=== PATIENT | female | born 1975 | race Caucasian/White ===

== ENCOUNTER 2017-05-03 07:21 | Inpatient (IN) | payer OTHER ==
[2017-04-15 09:51] VITALS: BMI 43.0
--- NOTE | 2017-04-15 10:21 | PAT Medication Instructions ---
Service Date Apr 15, 2017. Current Home Medication List Fluoxetine (Prozac), 40 MG PO QAM Hydrochlorothiazide (Hydrochlorothiazide), 1 TAB PO QAM Levothyroxine Sodium (Levothyroxine Sodium), 1 TAB PO QAM [ventolin inhaler], 2 PUFFS INH DIRECTED PRN for Shortness of Breath Medication Instructions For Your Scheduled Surgery - Hold the following medications the morning of surgery: Hydrochlorothiazide (Hydrochlorothiazide), 1 TAB PO QAM - Take the following medications the morning of surgery with a sip of water OTHERWISE NOTHING TO EAT OR DRINK AFTER MIDNIGHT: [ventolin inhaler], 2 PUFFS INH DIRECTED PRN for Shortness of Breath (use if needed; BRING TO HOSPITAL) Fluoxetine (Prozac), 40 MG PO QAM Levothyroxine Sodium (Levothyroxine Sodium), 1 TAB PO QAM If you have any questions please call us at [phone] or [phone] or [phone]
[2017-04-15 10:49] LABS: BASO % 0.3 %; BASO ABS # 0.02 K/uL (0-0.2); COMPLETE YES; EOS % 1.3 %; HEMATOCRIT 40.4 % (37-47); IG% 0.2 %; LYMPH % 31.8 %; LYMPH ABS # 2.01 K/uL (1.2-3.4); MEAN CELL VOLUME 91.6 fL (80-100); MEAN CORPUSCULAR HEMOGLOBIN 30.8 pg (25-34); MEAN CORPUSCULAR HGB CONC 33.7 g/dl (32-36); MEAN PLATELET VOLUME 9.1 fL (7.4-10.4); MONO % 9.5 %; NEUT % 56.9 %; PLATELET COUNT 285 K/uL (130-400); RED BLOOD COUNT 4.41 M/uL (4.2-5.4); WHITE BLOOD COUNT 6.33 K/uL (4.8-10.8)
--- NOTE | 2017-04-15 10:50 | DIAGNOSTIC IMAGING REPORT ---
CHEST PREADMISSION(PA/LAT) HISTORY: Preop. COMPARISON: None. FINDINGS: The lungs are clear. Cardiac silhouette is normal in size. No pleural effusions. No pneumothorax. IMPRESSION: No acute process. Electronically signed by: Vlad Arora M.D. 04/15/2017 10:49 AM Dictated Date/Time: 04/15/2017 10:46 AM
[2017-04-15 10:53] LABS: MANUAL MICROSCOPIC REQUIRED? NO; REVIEW REQ? NO; URINE APPEARANCE CLEAR (CLEAR); URINE BILIRUBIN NEG (NEG); URINE COLOR YELLOW; URINE EPITHELIAL CELL AUTO >30 /lpf (0-5); URINE NITRITE NEG (NEG); URINE SPECIFIC GRAVITY 1.014 (1.000-1.030); UROBILINOGEN NEG (NEG)
[2017-04-15 13:14] LABS: BUN/CREATININE RATIO 13.1 (10-20); CALCIUM 9.2 mg/dl (8.5-10.1); CREATININE 0.84 mg/dl (0.60-1.20); POTASSIUM 3.9 mmol/L (3.5-5.1)
[~2017-05-03] VITALS: Ht 177.8 cm; Wt 135.2 kg
[2017-05-03] VITALS (10 sets, daily range): BP systolic 101–127; BP diastolic 57–73; PULSE 59–88; TEMP 36.2–36.6; O2SAT 92–97; Ht 177.8 cm; Wt 135.2 kg
[~2017-05-03 07:21] MED LIST: CEFAZOLIN 3000 MG/65 ML D5W IV SCH; CeleBREX 200 MG CAP PO SCH; DEXAMETHASONE SOD INJ 4 MG/ML VIAL ONE; FENTANYL CITRATE INJ 50 MCG/1 ML 2 ML VIAL ONE; FLUO40CA8 PO; HYDR12.55 PO; HYDROmorphone INJ 2 MG/ML SYR/VIAL ONE; KETAMINE HCL INJ 50 MG/ML 10 ML VIAL ONE; LACTATED RINGER'S 1000ML 1,000 ML IV SCH; LEVO112T4 PO; LIDOCAINE HCL 2% 2 ML VIAL (20MG/ML) ONE; MIDAZOLAM HCL 1 MG/ML 2ML VIAL ONE; ONDANSETRON INJ 2 MG/ML 2 ML VIAL ONE; PREGABALIN 75 MG CAP PO SCH; PROPOFOL IV EMULSION 10 MG/ML 20 ML VIAL IV ONE; ROCURONIUM BROMIDE 10 MG/ML 5 ML VIAL ONE; ventolin inhaler INH
[2017-05-03] MEDS ORDERED: ONDANSETRON INJ 2 MG/ML 2 ML VIAL IV PRN ×2 (09:15→11:45)
[2017-05-03] MEDS ORDERED: PROMETHAZINE HCL INJ 12.5 MG in SODIUM CHLORIDE 0.9% 50ML 50 ML IV PRN ×2 (09:15→11:45)
[2017-05-03] MEDS ORDERED: EpHEDrine SULFATE INJ 50 MG/ML AMP IV PRN (09:15)
[2017-05-03] MEDS ORDERED: ATROPINE SULFATE 0.1 MG/ML 5ML SYR IV PRN (09:15)
[2017-05-03] MEDS ORDERED: THROMBIN FOR SOLN 20000 UNIT KIT ONE (09:54)
[2017-05-03] MEDS ORDERED: BUPIVACAINE/EPINEPHRINE 0.5% MPF 1:200,000 10 ML VIAL ONE (09:55)
[2017-05-03] MEDS ORDERED: BACITRACIN 50000 UNIT VIAL ONE (09:55)
[2017-05-03] MEDS ORDERED: HEPARIN SOD (PORCINE) 1000 UNIT/ML 10 ML VIAL ONE (09:55)
[2017-05-03] MEDS ORDERED: THROMBIN 5000 UNITS KIT ONE (09:55)
--- NOTE | 2017-05-03 10:08 | History & Physical Bridge Note ---
H&P Re-Evaluation Bridge Note: I have examined the patient, reviewed the History & Physical and in the interval since the performance of the History & Physical I have noted the following changes of clinical significance: No changes noted
[2017-05-03] MEDS ORDERED: FLOSEAL HEMOSTATIC MATRIX 10ML TOP ONE (11:29)
[2017-05-03] MEDS ORDERED: SODIUM CHLORIDE 0.9% 1000ML 1,000 ML IV SCH (11:44)
[2017-05-03] MEDS ORDERED: NALOXONE HCL 0.4 MG/1 ML VIAL/CARP IV PRN ×2 (11:45)
[2017-05-03] MEDS ORDERED: ACETAMINOPHEN 500 MG TAB PO PRN (11:45)
[2017-05-03] MEDS ORDERED: LORAZEPAM INJ 0.5 MG in SYRINGE 0.75 ML IV PRN (11:45)
[2017-05-03] MEDS ORDERED: SOD PHOSPHATE/SOD BIPHOSPHATE ENEMA 132 ML BTL PR PRN (11:45)
[2017-05-03] MEDS ORDERED: FAMOTIDINE 20 MG TAB PO PRN (11:45)
[2017-05-03] MEDS ORDERED: ALUMINUM/MAGNESIUM SUSP 30 ML UDC PO PRN (11:45)
[2017-05-03] MEDS ORDERED: hydrOXYzine HCL 25 MG TAB PO PRN (11:45)
[2017-05-03] MEDS ORDERED: LORAZEPAM 0.5 MG TAB PO PRN (11:45)
[2017-05-03] MEDS ORDERED: ACETAMINOPHEN IV 100 ML IV PRN (11:45)
[2017-05-03] MEDS ORDERED: HYDROmorphone HCL 0.5MG/ML 50 ML CASSETTE IV PRN (11:45)
[2017-05-03] MEDS ORDERED: BISACODYL 10 MG SUPP PR PRN (11:45)
[2017-05-03] MEDS ORDERED: METOCLOPRAMIDE HCL INJ 5 MG/ML 2 ML VIAL IV PRN (11:45)
[2017-05-03] MEDS ORDERED: MAGNESIUM HYDROXIDE SUSP 30 ML UDC PO PRN (11:45)
--- NOTE | 2017-05-03 11:57 | DIAGNOSTIC IMAGING REPORT ---
LUMBAR SPINE 2 OR 3 VIEW HISTORY: 41 years Female L4-S1 DECOMPRESSION/FUSION/INTERBODY COMPARISON: None available TECHNIQUE: Frontal and lateral spot fluoroscopic images of the lumbar spine were obtained utilizing 8.7 seconds of fluoroscopy time. FINDINGS/IMPRESSION: There has been interval laminectomy with interbody carla and screw fixation at the L4-L5 and L5-S1 levels. Alignment is satisfactory. The above report was generated using voice recognition software. It may contain grammatical, syntax or spelling errors. Electronically signed by: Ulices Alves M.D. 05/03/2017 11:55 AM Dictated Date/Time: 05/03/2017 11:54 AM
--- NOTE | 2017-05-03 11:57 | [facility] Post Operative Brief Note ---
Immediate Operative Summary Operative Date May 03, 2017. Pre-Operative Diagnosis Lumbar disk degeneration with foraminal stenosis and facet arthrosis, greatest at L4-5, and L5-S1 Post-Operative Diagnosis Lumbar disk degeneration with foraminal stenosis and facet arthrosis, greatest at L4-5, and L5-S1 Procedure(s) Performed L5-S1 Decompression and L4-S1 Instrumented Fusion; Infuse Bone Morphogenetic Protein, Use of Arteriocyte Surgeon Dr Mehta Weatherization Administrator Surgeon(s) Alexis Hartman Estimated Blood Loss 140ml Findings dict Specimens None as per
[2017-05-03] MEDS ORDERED: GLYCOPYRROLATE INJ 0.2 MG/ML VIAL ONE (12:00)
[2017-05-03] MEDS ORDERED: HYDROmorphone HCL 0.5MG/ML 50 ML CASSETTE ONE (12:00)
[2017-05-03] MEDS: FENTANYL CITRATE INJ 50 MCG/1 ML 2 ML VIAL IV PRN ×4 (12:00→12:15)
[2017-05-03] MEDS ORDERED: NEOSTIGMINE METHYLSULFATE 1 MG/ML 10ML VIAL ONE (12:00)
--- NOTE | 2017-05-03 12:02 | [facility] Operative Report ---
Operative Report Operative Date May 03, 2017. Pre-Operative Diagnosis Lumbar disk degeneration with foraminal stenosis and facet arthrosis, greatest at L4-5, and L5-S1 Post-Operative Diagnosis Lumbar disk degeneration with foraminal stenosis and facet arthrosis, greatest at L4-5, and L5-S1 Procedure(s) Performed 1. L5 laminectomy 2. L4-S1 bilateral pedicle screw instrumentation withn K2M Screws 3. Posterolateral fusion L4-S1 bilateral 4. R iliac crest bone marrow aspiratoin Surgeon Dr Mehta Furnace Installer Helper Surgeon(s) Alexis Hartman Estimated Blood Loss 140ml Findings see below Specimens None as per MD Complication(s) None Description of Procedure After identification of the patient and the operative level they were brought to the OR where they underwent induction of general anesthesia. They were positioned prone on a Jc spine table with all bony prominence well-padded. Care was taken to avoid pressure on the periorbital area. The lumbosacral area was sterilely prepped and draped in the usual fashion. Antibiotics were administered, a time-out was performed, level was confirmed, and skin incision was with localized lateral fluoroscopy and a spinal needle. The skin was infiltrated with half percent Marcaine with epinephrine. I then made skin incision from the spinous process of L3-S1. The dorsal fascia was incised and posterior exposure was accomplished with dissection out to the tips of the transverse processes from L4-S1 bilaterally. I then packed the gutters with thrombin-soaked sponges and used fluoroscopy to confirm the operative levels with markers at the operative levels. After identification of the appropriate level I placed Gelpi retractors and proceeded to perform midline decompression. Laminectomies of L5 were performed in the midline with takedown of the intervening ligamentum flavum. I then used an osteotome to remove the medial facets at L5-S1. Facet hypertrophy and degenerative changes were noted at the operative levels. L4-5 did not have significant stenosis therefore I simply removed the inferior portion of L4 spinous process for graft and decorticated the facets that were degenerated with a andrea. I then completed decompression with Kerrison rongeurs and palpated the nerve roots were adequately decompressed at the operative levels from L5-S1 bilaterally. I palpated all nerve roots were decompressed adequately. I then obtained hemostasis of epidural bleeding with bipolar cautery and Surgiflo. I then proceeded to place pedicle screws bilaterally at L4-S1 with bony anatomy confirmed to be intact with the ball-tipped feeler. I confirmed screw length, trajectory, and position with fluoroscopy. The disc at L5-S1 was collapsed posteriorly and prevented cage placement. Bone graft consisted of morselized local bone from laminectomy bone as well as bone graft hybrid derivatives trader saturated with stem cell concentrate. I obtained stem cell concentrate using a stem cell concentration system after aspiration of bone marrow from the right iliac crest via a separate stab incisions with a Jamshidi needle. I then applied this to bone graft hybrid derivatives trader. I then lowered the Bill frame to restore lordosis. I applied rods and end caps bilaterally with final tightening of all caps. I irrigated with bacitracin solution. I then decorticated the transverse processes bilaterally at the operative levels from L4-S1 as well as facet joints with a high-speed bur. I then packed the lateral gutters and facets with the bone graft mixture consisting of: infuse BMP and a collagen sponge, tricalcium phosphate logs, stem cell concentrate, morcellized local bone, and bone graft hybrid derivatives trader. I then confirmed hemostasis and closed in a layered fashion over a KARINA drain. All sponge and needle counts were correct in the case. Please note my PA-C participated in all portions of the procedure and was critical for performance of the procedure by assisting in positioning, prepping, draping, suction, retraction, and wound closure. I attest to the content of the Intraoperative Record and any orders documented therein. Any exceptions are noted below.
[2017-05-03] MEDS: HYDROmorphone INJ 1 MG/ML SYR IV PRN ×4 (12:27→12:42)
--- NOTE | 2017-05-03 12:47 | Anesthesiology Progress Note ---
Anesthesia Post Op Note Date & Time May 03, 2017 at 12:47 Vital Signs Pain Intensity: 4 Vital Signs Past 12 Hours Date Time Temp Pulse Resp B/P (MAP) Pulse Ox O2 Delivery O2 Flow Rate FiO2 05/03/17 12:38 63 15 96 05/03/17 12:38 64 15 05/03/17 12:36 112/77 05/03/17 12:33 72 15 96 05/03/17 12:33 72 15 05/03/17 12:31 124/87 05/03/17 12:28 65 13 05/03/17 12:28 61 13 95 05/03/17 12:26 127/78 05/03/17 12:23 65 20 94 05/03/17 12:23 67 20 05/03/17 12:22 124/66 05/03/17 12:18 72 11 95 05/03/17 12:18 73 11 05/03/17 12:16 158/95 05/03/17 12:13 77 15 05/03/17 12:13 77 15 99 05/03/17 12:11 138/85 05/03/17 12:08 82 15 97 05/03/17 12:08 82 15 05/03/17 12:06 139/104 05/03/17 12:03 81 18 99 05/03/17 12:03 81 18 05/03/17 12:01 160/96 05/03/17 11:58 87 27 05/03/17 11:58 87 27 99 05/03/17 11:56 152/102 05/03/17 11:54 164/101 05/03/17 11:53 37. 90 16 164/101 95 Mask 10 05/03/17 08:02 36.5 73 20 127/73 95 Room Air Notes Mental Status: alert / awake / arousable, participated in evaluation Pt Amnestic to Procedure: Yes Nausea / Vomiting: adequately controlled Pain: adequately controlled Airway Patency, RR, SpO2: stable & adequate BP & HR: stable & adequate Hydration State: stable & adequate Anesthetic Complications: no major complications apparent
[2017-05-03] MEDS ORDERED: DiphenhydrAMINE HCL 50 MG/ML VIAL ONE (13:10)
[2017-05-03] MEDS ORDERED: DiphenhydrAMINE HCL 50 MG/ML VIAL IV PRN (13:15)
[2017-05-03] MEDS: SODIUM CHLORIDE 0.9% 1000ML 1,000 ML IV SCH (14:05)
[2017-05-03] MEDS: DEXAMETHASONE INJ 6 MG in SYRINGE 0 ML IV SCH (15:36)
[2017-05-03] MEDS: CEFAZOLIN IV 2,000 MG in DEXTROSE 5% 50ML 50 ML IV SCH (17:51)
[2017-05-03] MEDS: DOCUSATE SODIUM/SENNA 50/8.6MG TAB PO SCH (20:38)
[2017-05-04] VITALS (7 sets, daily range): BP systolic 100–134; BP diastolic 61–80; PULSE 60–80; TEMP 36.6–36.8; O2SAT 91–95
[2017-05-04] MEDS: DEXAMETHASONE INJ 6 MG in SYRINGE 0 ML IV SCH ×2 (00:23→07:10)
[2017-05-04] MEDS: SODIUM CHLORIDE 0.9% 1000ML 1,000 ML IV SCH (01:39)
[2017-05-04] MEDS: CEFAZOLIN IV 2,000 MG in DEXTROSE 5% 50ML 50 ML IV SCH (01:39)
[2017-05-04] MEDS: LEVOTHYROXINE 112 MCG TAB PO SCH (05:36)
[2017-05-04] MEDS ORDERED: HYDROmorphone INJ 1 MG/ML SYR IV PRN (06:00)
[2017-05-04] MEDS ORDERED: DC PCA SCH (06:00)
[2017-05-04] MEDS ORDERED: NURSING DECISION MEDICATION ORDER SCH (06:00)
[2017-05-04] MEDS ORDERED: HYDROmorphone INJ 0.5 MG/0.5 ML SYR IV PRN (06:00)
[2017-05-04 06:08] LABS: COMPLETE YES; HEMATOCRIT 38.8 % (37-47); IG% 0.2 %; LYMPH % 7.8 %; LYMPH ABS # 1.46 K/uL (1.2-3.4); MEAN CELL VOLUME 92.2 fL (80-100); MEAN CORPUSCULAR HEMOGLOBIN 29.7 pg (25-34); MEAN CORPUSCULAR HGB CONC 32.2 g/dl (32-36); MEAN PLATELET VOLUME 9.7 fL (7.4-10.4); MONO % 6.9 %; NEUT % 85.1 %; PLATELET COUNT 263 K/uL (130-400); RED BLOOD COUNT 4.21 M/uL (4.2-5.4); WHITE BLOOD COUNT 18.76 K/uL (4.8-10.8)
[2017-05-04 06:41] LABS: BUN/CREATININE RATIO 16.6 (10-20); CALCIUM 8.7 mg/dl (8.5-10.1); CREATININE 0.87 mg/dl (0.60-1.20); POTASSIUM 4.6 mmol/L (3.5-5.1)
[2017-05-04] MEDS: FLUOXETINE HCL 20 MG CAP PO SCH (07:10)
[2017-05-04] MEDS: OXYCODONE HCL IR 5 MG TAB (IMMEDIATE RELEASE) PO PRN ×3 (07:11→18:15)
--- NOTE | 2017-05-04 07:58 | Anesthesiology Progress Note ---
Anesthesia Post Op Note Date & Time May 04, 2017 at 07:58 Vital Signs Pain Intensity: 6.0 Vital Signs Past 12 Hours Date Time Temp Pulse Resp B/P (MAP) Pulse Ox O2 Delivery O2 Flow Rate FiO2 05/04/17 07:47 36.7 70 19 134/64 (87) 91 Room Air 05/04/17 07:15 Nasal Cannula 2.0 05/04/17 04:26 36.6 60 17 110/67 (81) 95 Nasal Cannula 2.0 05/03/17 23:00 36.6 76 16 103/67 (79) 92 Room Air 05/03/17 20:11 36.4 62 16 102/61 (75) 95 Nasal Cannula Notes Mental Status: alert / awake / arousable, participated in evaluation Pt Amnestic to Procedure: Yes Nausea / Vomiting: adequately controlled Pain: adequately controlled Airway Patency, RR, SpO2: stable & adequate BP & HR: stable & adequate Hydration State: stable & adequate Anesthetic Complications: no major complications apparent
--- NOTE | 2017-05-04 15:20 | Orthopedic Progress Note ---
Orthopedic Progress Note Date of Service May 04, 2017. Subjective Post OP Day: 1 Reports: feeling well, Denies: chest pain, SOB, nausea / vomiting, light headedness Additional Notes: Pt lying on her left side when entering room. States she feels she overdid it today between PT and sitting up in the chair. Having some pain in the operative area but getting under control with meds and rest. Very happy that she no longer has pain down her lower extremity and no more numbness in her foot. Objective calves soft nontender, N/V intact, dressing C/D/I, A&O x3, hemovac drainage ( 120ml) Date Time Temp Pulse Resp B/P (MAP) Pulse Ox O2 Delivery O2 Flow Rate FiO2 05/04/17 12:10 36.8 80 19 122/74 (90) 94 Room Air 05/04/17 10:52 91 Room Air 05/04/17 10:25 75 92 05/04/17 07:47 36.7 70 19 134/64 (87) 91 Room Air 05/04/17 07:15 Nasal Cannula 2.0 05/04/17 04:26 36.6 60 17 110/67 (81) 95 Nasal Cannula 2.0 05/03/17 23:00 36.6 76 16 103/67 (79) 92 Room Air 05/03/17 20:11 36.4 62 16 102/61 (75) 95 Nasal Cannula 05/03/17 19:35 95 Nasal Cannula 2.0 05/03/17 16:43 60 16 101/67 (78) 93 05/03/17 15:27 36.2 88 16 108/57 (74) 96 Nasal Cannula 4.0 Laboratory Results 24 Hours: Test 05/04/17 05:48 White Blood Count 18.76 K/uL Red Blood Count 4.21 M/uL Hemoglobin 12.5 g/dL Hematocrit 38.8 % Mean Corpuscular Volume 92.2 fL Mean Corpuscular Hemoglobin 29.7 pg Mean Corpuscular Hemoglobin Concent 32.2 g/dl Platelet Count 263 K/uL Mean Platelet Volume 9.7 fL Neutrophils (%) (Auto) 85.1 % Lymphocytes (%) (Auto) 7.8 % Monocytes (%) (Auto) 6.9 % Eosinophils (%) (Auto) 0.0 % Basophils (%) (Auto) 0.0 % Neutrophils # (Auto) 15.97 K/uL Lymphocytes # (Auto) 1.46 K/uL Monocytes # (Auto) 1.29 K/uL Eosinophils # (Auto) 0.00 K/uL Basophils # (Auto) 0.00 K/uL Assessment & Plan Assessment: POD 1 s/p L5-S1 Decompression and L4-S1 Instrumented Fusion; Infuse Bone Morphogenetic Protein, Use of Arteriocyte Plan: PT/OT Planning for dc The patient was seen and examined by Dr. Gabriel while the patient was indicating in the hallway with physical therapy present. A she was on a walker and was invading without significant discomfort. Patient positive for flatus. No bowel movement since prior to surgery. Mild to moderate strikethrough on her lumbar dressing was noted. KARINA drain intact. Patient will be reassessed in the morning for possible discharge. KARINA drain dressing to be changed. Eric Gabriel D.O. Inhouse Planning Pain Management: Dilaudid, PO Tylenol, Oxy IR DVT Prophylaxis: TEDs, SCDs Discharge Planning Discharge Planning: home
[2017-05-04] MEDS ORDERED: KETOROLAC TROMETHAMINE 15 MG/ML VIAL IV. ONE (20:15)
[2017-05-04] MEDS ORDERED: NURSING VERBAL MED ORDER ONE (20:15)
[2017-05-04] MEDS ORDERED: KETOROLAC TROMETHAMINE 15 MG/ML VIAL IV. PRN (20:15)
[2017-05-04] MEDS: DOCUSATE SODIUM/SENNA 50/8.6MG TAB PO SCH (20:31)
[2017-05-05] MEDS: LEVOTHYROXINE 112 MCG TAB PO SCH (05:29)
[2017-05-05] MEDS: POLYETHYLENE (MIRALAX) 17 GM PACK PO SCH ×2 (05:29→12:00)
[2017-05-05 07:34] VITALS: BP 112/70; PULSE 69; TEMP 36.4; O2SAT 95
[2017-05-05] MEDS: FLUOXETINE HCL 20 MG CAP PO SCH (08:31)
[2017-05-05 10:11] VITALS: O2SAT 95
[2017-05-05] MEDS ORDERED: RXC5 PO (11:58)
--- NOTE | 2017-05-05 11:59 | Discharge Instructions ---
Discharge Instructions Date of Service May 05, 2017. Admission Reason for Admission: Spinal Stenosis Discharge Discharge Diagnosis / Problem: same Discharge Goals Goal(s): Decrease discomfort Activity Recommendations Activity Limitations: per Instructions/Follow-up section . Instructions / Follow-Up Instructions / Follow-Up ACTIVITY RECOMMENDATIONS: SELF CARE INSTRUCTIONS AFTER THORACIC/LUMBAR FUSIONS 1. You may walk to your tolerance. It is good exercise for your legs and back. Expect some back and intermittent leg aches and pains. 2. You may perform "counter-top" level activities (make a sandwich, latia with a project, etc.). 3. No bending or lifting of more than 10 pounds or back twisting of any nature (roll like a log when turning in bed). 4. You may ride in a car for 20-30 minutes at a time. No driving until after your first visit with your doctor. 5. Frequent changes of position and restricting sitting to 30 minutes at a time will help limit the amount of back spasms and stiffness you may experience. 6. You may discontinue the use of ambulatory aids (cane, crutches, etc.) once your strength and confidence allow. 7. You may lead principal technical architect the shower and let water strike your incision when you arrive home at least once daily. Do not take a tub bath, sit in a hot tub or go into a swimming pool until after your first recheck in the office. SPECIAL CARE INSTRUCTIONS: VERY IMPORTANT TO READ AND REVIEW A. Your surgical incision has been closed with a cosmetic suture under the skin that will dissolve in about 6 weeks. In 14 days, you can use a pair of clean scissors and cut the suture that is left outside of the skin at the ends of your incision. 1. The small skin tapes can be removed 7 days after surgery if they have not fallen off by that point. 2. You may keep the wound open to air as much as possible to promote healing after post-op day number 5 unless told otherwise by your doctor. 3. If you think the wound looks like it is becoming infected (redness or worsening drainage) and/or you are experiencing fever, chill or worsening back pain and muscle spasms, contact the office so that we may evaluate you as soon as possible. B. Complications are uncommon, but please contact us if you have any signs or symptoms of: 1. wound infection (fever higher than 102.5 degrees F, redness, separation of wound, drainage, or increasing pain from the incision) 2. blood clots in legs (pain, swelling, redness and warmth in legs) 3. urinary tract infection (fever higher than 102.5 degrees F, burning upon urination or increased frequency of urination) 4. nerve problems (inability to walk on your toes or heels, numbness, loss of bowel or bladder control) 5. any other symptoms that concern you C. Please call the office at if you have any concerns or questions about your operation or recovery. D. No smoking! Smoking drastically decreases the chance of a solid fusion. E. Do not take any anti-inflammatory medications (Indocin, Advil, Motrin, Aspirin, Naprosyn, etc.) as these may inhibit the chance of a solid fusion. Tylenol is okay to take for pain. MANAGING PAIN AFTER SPINAL SURGERY 1. Narcotic medication is intended for short-term use and will be provided for surgical pain. Surgical pain usually lasts for a period of 4-6 weeks. Narcotic medication includes Percocet, Vicodin, Darvocet, Tylenol #3 or Lortab. 2. Longer-term pain is more appropriately treated with non-narcotic medication such as Tylenol ES. 3. Muscle spasm is not appropriately treated with narcotics. Muscle relaxers such as Soma, Flexeril or Skelaxin can be used along with Tylenol ES. 4. Remember that we all live with some "aches and pains". This is not unusual or uncommon after an injury or as we get older. a. Back pain is expected and may include muscle spasms for 4 to 6 weeks after surgery. The pain should gradually improve. If the pain worsens for no apparent reason, please contact the office. b. Intermittent leg pain may also be experienced and should not be concerned about unless it worsens for no apparent reason. If so, please contact the office. 5. We will provide appropriate medication within the normal guidelines of their prescribed use. We will also be very cautious and aware of potential abuse and extended duration of patients' medication needs. a. Pain medications are for your comfort and to assist with sleep and rest so that the tissue can heal. They are not provided in order to return to normal activity and should not be used through the day. To do so or worsening pain at night can result from ongoing tissue damage and development of tolerance to the prescribed medicine. 6. Please allow 2-3 days to process refills. Prescriptions will not be mailed but must be picked up at the office. FOLLOW UP VISIT: Keep your scheduled follow-up appointment. Any questions, please call the office at . Current Hospital Diet Patient's current hospital diet: Regular Diet Discharge Diet Recommended Diet: Regular Diet Procedures Procedures Performed: 1. L5 laminectomy 2. L4-S1 bilateral pedicle screw instrumentation withn K2M Screws 3. Posterolateral fusion L4-S1 bilateral 4. R iliac crest bone marrow aspiratoin Pending Studies Studies pending at discharge: no Medical Emergencies . Who to Call and When: Medical Emergencies: If at any time you feel your situation is an emergency, please call 911 immediately. . Non-Emergent Contact Non-Emergency issues call your: Surgeon . "Provider Documentation" section prepared by Arnaud Mehta. . VTE Core Measure Inpt VTE Proph given/why not?: SCD's [place] Drug Monitoring Program Search Results: patient reviewed within database, no issues identified ( checked by jaqueline)
--- NOTE | 2017-05-05 12:36 | Discharge Summary ---
Orthopedic Discharge Summary Admission Date/Reason May 03, 2017 at 09:30 Spinal Stenosis. Discharge Date/Disposition May 05, 2017 Home with services Diagnosis Principal Diagnosis: same Procedure(s) Performed Lumbar fusion Medication Reconciliation New Medications: Oxycodone HCl (Oxycodone HCl) 5 Mg Tab 5-10 MG PO Q4H PRN for Moderate - severe pain, #90 TAB Continued Medications: Fluoxetine (Prozac) 40 Mg Cap 40 MG PO QAM, CAP Hydrochlorothiazide (Hydrochlorothiazide) 12.5 Mg Tab 1 TAB PO QAM for 30 Days, #30 TAB 5 Refills Levothyroxine Sodium (Levothyroxine Sodium) 112 Mcg Tab 1 TAB PO QAM for 30 Days, #30 TAB 5 Refills [ventolin inhaler] () 2 PUFFS INH DIRECTED PRN for Shortness of Breath Admission Physical Exam As per Admitting History & Physical. Hospital Course The patient was admitted for elective lumbar surgery and underwent the procedure without complications. They were transferred to the floor where they were hemodynamically stable. Pain was controlled with oral pain medication. They were seen by PT/OT and demonstrated safe mobilization. Drain output decreased and they had return of bowel function. They were discharged in stable condition Discharge Instructions Please refer to the electronic Patient Visit Report (Discharge Instructions) for additional information.
[2017-05-05 12:52] VITALS: BP 112/70; PULSE 69; TEMP 36.4; O2SAT 95
[2017-05-05] MEDS: OXYCODONE HCL IR 5 MG TAB (IMMEDIATE RELEASE) PO PRN (14:05)
[2018-05-03] MEDS ORDERED: CEFAZOLIN 3000 MG/65 ML D5W IV SCH (06:00)
== END 2017-05-05 14:45 | disposition home or self-care (01) | DRG 460 ==
LOC: C.ACU 07:21 → C.3E 09:30 → ENRESERV 13:02
PROVIDERS: ADMIT Orthopaedic Surgery Orthopaedic Surgery of the Spine; ATTEND Orthopaedic Surgery Orthopaedic Surgery of the Spine
PROC: 3E0V0GB Introduction of Recombinant Bone Morphogenetic Protein into Bones, Open Approach (ICD-10-PCS; principal; 2017-05-03 09:30)
PROC: 0SG30AJ Fusion of Lumbosacral Joint with Interbody Fusion Device, Posterior Approach, Anterior Column, Open Approach (ICD-10-PCS; principal; 2017-05-03 09:30)
PROC: 0QB20ZZ Excision of Right Pelvic Bone, Open Approach (ICD-10-PCS; principal; 2017-05-03 09:30)
DX: M48.07 Spinal stenosis, lumbosacral region (principal); Z68.41 Body mass index [BMI] 40.0-44.9, adult; M48.06 Spinal stenosis, lumbar region; E66.9 Obesity, unspecified; F32.9 Major depressive disorder, single episode, unspecified; F17.210 Nicotine dependence, cigarettes, uncomplicated; Z90.49 Acquired absence of other specified parts of digestive tract; Z98.51 Tubal ligation status

== ENCOUNTER 2023-01-31 20:09 | Observation (INO) ==
[2023-01-31 22:26] LABS: Basophils # (auto) 0.05 K/uL (0-0.2); Basophils % (auto) 0.5 %; Hematocrit (blood only) 38.4 % (37.0-47.0); Hemoglobin 12.7 g/dl (12.0-16.0); Immature Granulocytes # (auto) 0.02 K/uL (0.01-0.20); Immature Granulocytes % (auto) 0.2 %; Lymphocytes # (auto) 3.34 K/uL (1.2-3.4); Mean Corpuscular Hemoglobin 29.4 pg (25.0-34.0); Mean Corpuscular Hgb Conc 33.1 g/dL (32.0-36.0); Mean Corpuscular Volume 88.9 fL (80.0-100.0); Mean Platelet Volume 9.2 fL (9.4-12.4); Monocytes # (auto) 0.97 K/uL (0.11-0.59); Monocytes % (auto) 9.9 %; Neutrophils # (auto) 5.34 K/uL (1.40-6.50); Neutrophils % (auto) 54.4 %; Platelet Count 295 K/uL (130-400); RDW Coefficient of Variation 12.3 % (11.5-14.5); Red Blood Count 4.32 M/uL (4.20-5.40); White Blood Count 9.82 K/ul (4.8-10.8)
[2023-01-31 22:42] LABS: BUN Creatinine Ratio 20.7 (10-20); Calcium 9.4 mg/dl (8.6-10.3); Creatinine Clr Calc Pharmacy 136.5 ml/min; Est GFR (African American) 100.2 ml/min; Est GFR (Non-African American) 86.4 ml/min
[2023-01-31] MEDS ORDERED: metroNIDAZOLE 500 MG/100 ML BAG IV STA (23:14)
--- NOTE | 2023-01-31 23:31 | Emergency Department Note ---
History of Present Illness General Chief complaint: Animal Bite Stated complaint: BIT BY CAT,HAND SWELLING Time Seen by Provider: 01/31/23 23:04 History of Present Illness Maximum Pain Intensity: 5 This 47-year-old female presents to the ER complaining of hand finger pain and swelling after being bit by her cat yesterday. Patient complains of pain to the right hand second digit and left hand 2 fingers. They are red and swollen. She has difficulty bending and extending the finger. Patient denies fever, chills, numbness, tingling, diabetes. Tetanus is reported as current. Home Medications Medication Instructions Recorded Confirmed Type albuterol sulfate 90 mcg/actuation 2 puff inhalation QID PRN 08/30/18 08/30/18 History aerosol inhaler Shortness Of Breath Or Wheezing fluoxetine 40 mg capsule 40 mg PO QAM 08/30/18 08/30/18 History hydrochlorothiazide 12.5 mg capsule 12.5 mg PO QAM 08/30/18 08/30/18 History levothyroxine 112 mcg tablet 112 mcg PO QAM 08/30/18 08/30/18 History Allergies Allergy/AdvReac Type Severity Reaction Status Date / Time No Known Allergies Allergy Unknown Verified 08/30/18 04:24 Past Med/Surg History Social History Smoking Status: Never smoker Preferred Language: Telugu Feels Safe at Home: Yes Review of Systems A total of 10 systems reviewed and were otherwise negative Physical Exam Vital Signs Vital Signs - 24 hr 01/31/23 20:30 01/31/23 23:08 Temperature 36.9 C Temperature Source Temporal Artery Scan Pulse Rate 73 Pulse Rate [Left Finger] 69 Respiratory Rate 20 20 Blood Pressure 189/103 H Blood Pressure [Left Arm] 151/89 H Blood Pressure Mean 131 Blood Pressure Mean [Left Arm] 109 Pulse Oximetry 98 98 Oxygen Delivery Method Room Air Room Air Sepsis Recent Fever Within 48 Hours No Sepsis New/Unexplained Change in Mental Status N/A Sepsis Action Taken by Nursing No Action Required VITALS: Vitals are noted on the nurse's note and reviewed by myself. Vital signs stable. GENERAL: Pleasant, in no acute distress, nondiaphoretic, well-developed well- nourished. SKIN: Cat bites to both hands with 3 fingers that are infected, the rest of the skin was without rashes, erythema, edema, or bruising. There is no tenting of the skin. Capillary reflex less than 2 seconds. HEAD: Normocephalic atraumatic. EARS: External auditory canals clear, EYES: Pupils equal round and reactive to light and accommodation. Conjunctivae without injection, sclerae without icterus. Extraocular movements intact. NOSE: Patent, turbinates without inflammation or discharge. MOUTH: Mucous membranes moist. Pharynx without erythema or exudate. Uvula midline. Airway patent. Tongue does not deviate. NECK: Supple without nuchal rigidity. No lymphadenopathy. No thyromegaly. Cervical spine is nontender. No JVD. HEART: Regular rate and rhythm LUNGS: Clear to auscultation bilaterally without wheezes, rales or rhonchi. No retractions or accessory muscle use. ABDOMEN: Positive bowel sounds x 4. Normal tympanic percussion. Soft, nontender, without masses or organomegaly. Coleman sign negative. No guarding or rebound tenderness. No CVA tenderness MUSCULOSKELETAL: No muscle atrophy, erythema, or edema noted. Right hand second finger concerns for tendon infection, left hand second and fourth finger concerns for infection. Patient has difficulty extending these fingers. All of the fingers have full range of motion. NEURO: Patient was alert and oriented to person place and time. Normal sensation to light and sharp touch. No focal neurological deficits. Medical Decision Making Medical Records Attestation: I reviewed the patient's medical records. Home Medications Current Medication List: was personally reviewed by me Laboratory Data Attestation: I reviewed the patient's lab results. 01/31/23 22:11 01/31/23 22:11 Lab Results 01/31/23 01/31/23 Range/Units 22:11 22:11 WBC 9.82 (4.8-10.8) K/ul RBC 4.32 (4.20-5.40) M/uL Hgb 12.7 (12.0-16.0) g/dl Hct 38.4 (37.0-47.0) % MCV 88.9 (80.0-100.0) fL MCH 29.4 (25.0-34.0) pg MCHC 33.1 (32.0-36.0) g/dL RDW Std Deviation 40.0 (36.4-46.3) fL RDW Coeff of Dalton 12.3 (11.5-14.5) % Plt Count 295 (130-400) K/uL MPV 9.2 L (9.4-12.4) fL Immature Gran % (Auto) 0.2 % Neut % (Auto) 54.4 % Lymph % (Auto) 34.0 % [place] % (Auto) 9.9 % Eos % (Auto) 1.0 % Baso % (Auto) 0.5 % Neut # (Auto) 5.34 (1.40-6.50) K/uL Lymph # (Auto) 3.34 (1.2-3.4) K/uL [place] # (Auto) 0.97 H (0.11-0.59) K/uL Eos # (Auto) 0.10 (0-0.50) K/uL Baso # (Auto) 0.05 (0-0.2) K/uL Immature Gran # (Auto) 0.02 (0.01-0.20) K/uL Sodium 138 (136-145) mmol/L Potassium 4.0 (3.5-5.1) mmol/L Chloride 106 (98-107) mmol/L Carbon Dioxide 24 (21-32) mmol/L Anion Gap 8 (3-11) BUN 17 (6-23) mg/dl Creatinine 0.82 (0.6-1.2) mg/dl Est Cr Clr Drug Dosing 136.5 ml/min Est GFR ( Amer) 100.2 ml/min Est GFR (Non-Af Amer) 86.4 ml/min BUN/Creatinine Ratio 20.7 H (10-20) Glucose 97 (70-99(Fasting)) mg/dl Calcium 9.4 (8.6-10.3) mg/dl Imaging Data Attestation: I personally reviewed and interpreted this imaging study as follows: MDM Narrative Prior records reviewed and summarized as above. Triage Nursing notes reviewed. Additional history obtained from family. The patient's history was concerning for swelling and redness of the skin. Differential diagnosis: Etiologies such as cellulitis, abscess, MRSA infection, DVT, necrotizing fasciitis, dermatitis, drug eruption, as well as others were entertained.. Physical examination: The physical examination was consistent with infected cat bites ER treatment provided: Zosyn and Flagyl were ordered Patient given morphine for the pain. On reassessment the patient felt better. Diagnostics interpreted by me: The labs Independently Interpreted by myself revealed no worrisome leukocytosis, blood cultures pending Imaging studies: Bilateral hand x-rays no for fracture, dislocation or foreign body per my independent interpretation Consultation: A consultation was placed with the hospitalist. The case was discussed and diagnostics were reviewed. The patient was evaluated in the ER for further treatment. This appears to be infected cat bites to both hands. Patient was started on antibiotics. There is concern for tendon involvement. Medicine was consulted. Patient will be admitted for IV antibiotics. By the evaluation outlined above emergent etiologies such as abscess, necrotizing fasciitis, DVT, as well as others were deemed relatively unlikely. The pt informed about the findings as listed above. All questions were answered and pleased with the treatment. The chart was completed utilizing Glow Speech voice recognition software. Grammatical errors, random word insertions, pronoun errors, and incomplete sentences are an occassional consequence of this system due to software limitations, ambient noise, and hardware issues. Any formal questions or concerns about the content, text, or information contained within the body of this dictation should be directly addressed to the physician assistant at surgery for clarification. Impression & Plan Infected cat bite of finger, Cat bite Discharge Plan Visit Data Chief Complaint: Animal Bite Stated Complaint: BIT BY CAT,HAND SWELLING ED Provider: [facility] ED Midlevel Provider: Sloane Crain Discharge Problem: Infected cat bite of finger, Cat bite Patient Disposition: Admitted As Inpatient Condition: Good Forms Stand Alone Forms: [facility] [employer] Prescriptions Prescriptions: No Action fluoxetine 40 mg capsule 40 mg PO QAM hydrochlorothiazide 12.5 mg capsule 12.5 mg PO QAM albuterol sulfate [Ventolin HFA] 90 mcg/actuation HFA aerosol inhaler 2 puff Inhalation QID PRN (Reason: Shortness Of Breath Or Wheezing) levothyroxine 112 mcg tablet 112 mcg PO QAM Referrals Referrals: Robert Victoria MD [Primary Care Provider] - Infected cat bite of finger Qualifiers: Encounter type: initial encounter Qualified Code(s): S61.259A - Open bite of unspecified finger without damage to nail, initial encounter
[2023-01-31] MEDS: PIPERACILLIN/TAZOBACTAM 4.5 GM/120 ML BAG IV ONE (23:39)
[2023-02-01] MEDS ORDERED: MoRPHine SULFATE 4 MG/ML 1 ML CARP\\VIAL IV STA (00:04)
--- NOTE | 2023-02-01 00:27 | History & Physical Report ---
Date of Service February 01, 2023 Assessment & Plan (1) Infected cat bite of finger: Plan: 47-year-old female presenting with worsening edema, redness and pain at the site of multiple cat bites. Patient is afebrile, hemodynamically stable and nontoxic in appearance. Observation to medical Continue Zosyn -Monitor for progressive cellulitis Orthopedic surgery consultation appreciated Tylenol and ibuprofen as needed for pain Tetanus vaccine ordered Patient with history of hypertension, hypothyroidism and depression. She reports she is not currently taking any medications for these issues. She recently got her medical insurance reinstated and is in the process of trying to obtain these medications. I asked if she needed assistance at this time and she declined. Overall she feels she is doing very well History of Present Illness Chief Complaint: Cat bites Primary Care Provider: Robert Victoria MD Aliyah Jerome Is a 47-year-old female with history of hypothyroidism and hypertension presenting with multiple cat bites on her hands. Patient's cat got its paw caught. When patient tried to help free the cat's paw, the cat bit her multiple times on both of her hands. The event occurred yesterday 01/30/2023 around 20:30. She sustained multiple puncture wounds to her left and right hands. Since the event, she has noted increased swelling and pain in her bilateral hands specifically her second and fourth digit on her left and her second digit on her right hand. She has also noted worsening redness on the dorsum of the right second digit.She went to the jeweler today and had her rings cut off of her left finger secondary to swelling. Patient denies fevers, chills, nausea, vomiting. Denies chest pain, cough, shortness of breath. No additional complaints at this time. She has been taking Advil and Tylenol to help manage her pain. Cat is an indoor cat, 4 years old and has never been outside. The animal has not received any vaccinations. She reports that the animal is in good health. Patient last had a tetanus shot in 2010 after being bitten by a dog. In the ER she is afebrile, mildly hypertensive otherwise hemodynamically stable. No acute distress ER course: Zosyn Flagyl Allergies Allergy/AdvReac Type Severity Reaction Status Date / Time No Known Allergies Allergy Unknown Verified 02/01/23 00:50 Home Medications Medication Instructions Recorded Confirmed Type ibuprofen 200 mg tablet (Advil) 1,000 mg PO BID PRN Pain 02/01/23 02/01/23 History Past Med/Surg History Medical History (Updated 02/01/23 @ 04:16 by Jovanna Mayer DO) Depression Hypertension Hypothyroid Surgical History (Updated 02/01/23 @ 04:17 by Jovanna Mayer DO) History of appendectomy History of spinal fusion History of tonsillectomy History of tubal ligation Family History (Updated 02/01/23 @ 04:17 by Jovanna Mayer DO) Other Diabetes Social History Smoking Status: Former smoker Second Hand Exposure: No; Do You Dip or Chew Tobacco: No; Tobacco Cessation Education Requested by Patient: No Hx Alcohol Use: Yes Alcohol type: beer Hx Substance Use: No Preferred Language: Latvian Communication Ability: Effective Switch Inspector Required: No Beliefs That Will Affect Care: None Current Living Situation: Spouse Other Information That Helps Us Care for You: No Feels Safe at Home: Yes Safety Concerns: Feels Safe At This Time Assistive Devices: Glasses Review of Systems Review of Systems: All systems reviewed & are unremarkable except as noted in HPI & below Physical Exam Physical Exam: General: patient resting comfortably, NAD, non-toxic in appearance, AA&O x 4 HEENT: NC/AT, PERRL, EOMI, anicteric sclera, conjunctiva without injection, external ear normal to inspection and nontender, nares patent, moist mucus membranes, dentition intact, no oropharyngeal lesions, neck supple, trachea midline, no LAD, no thyromegaly, no JVD Heart: +S1/S2, regular, no m/r/g Lungs: equal air entry bilaterally, no rales/rhonchi/wheezes Abd: +BS, soft, NT/ND, no masses/organomegaly/ascites Ext: warm, 2+ pulses in UE/LE bilaterally, no clubbing/cyanosis or edema Neuro: nonfocal, patient AA&O x 4, speech intact, no facial droop, moving all extremities on command with equal strength 5/5 Hands - swelling and mild redness of left 2nd, 3rd and 4th digits with teeth cassidy present in fingers, swelling, warmth and redness of right 2nd digit with puncture cassidy. No drainage or active bleeding. No lymphangitis Results & Data Results & Data Vital Signs (Past 12 Hours) Vital Signs Temp Pulse Pulse Resp BP BP Pulse Ox 01/31/23 23:08 69 20 151/89 H 98 01/31/23 20:30 36.9 C 73 20 189/103 H 98 O2 Del Method 01/31/23 23:08 Room Air 01/31/23 20:30 Room Air Laboratory Results Laboratory Results WBC 9.82 K/ul (4.8-10.8) 01/31/23 22:11 RBC 4.32 M/uL (4.20-5.40) 01/31/23 22:11 Hgb 12.7 g/dl (12.0-16.0) 01/31/23 22:11 Hct 38.4 % (37.0-47.0) 01/31/23 22:11 MCV 88.9 fL (80.0-100.0) 01/31/23 22:11 MCH 29.4 pg (25.0-34.0) 01/31/23 22:11 MCHC 33.1 g/dL (32.0-36.0) 01/31/23 22:11 RDW Std Deviation 40.0 fL (36.4-46.3) 01/31/23 22:11 RDW Coeff of Dalton 12.3 % (11.5-14.5) 01/31/23 22:11 Plt Count 295 K/uL (130-400) 01/31/23 22:11 MPV 9.2 fL (9.4-12.4) L 01/31/23 22:11 Immature Gran % (Auto) 0.2 % 01/31/23 22:11 Neut % (Auto) 54.4 % 01/31/23 22:11 Lymph % (Auto) 34.0 % 01/31/23 22:11 [place] % (Auto) 9.9 % 01/31/23 22:11 Eos % (Auto) 1.0 % 01/31/23 22:11 Baso % (Auto) 0.5 % 01/31/23 22:11 Neut # (Auto) 5.34 K/uL (1.40-6.50) 01/31/23 22:11 Lymph # (Auto) 3.34 K/uL (1.2-3.4) 04/17/23 22:11 [place] # (Auto) 0.97 K/uL (0.11-0.59) H 01/31/23 22:11 Eos # (Auto) 0.10 K/uL (0-0.50) 01/31/23 22:11 Baso # (Auto) 0.05 K/uL (0-0.2) 01/31/23 22:11 Immature Gran # (Auto) 0.02 K/uL (0.01-0.20) 01/31/23 22:11 Sodium 138 mmol/L (136-145) 01/31/23 22:11 Potassium 4.0 mmol/L (3.5-5.1) 01/31/23 22:11 Chloride 106 mmol/L (98-107) 01/31/23 22:11 Carbon Dioxide 24 mmol/L (21-32) 01/31/23 22:11 Anion Gap 8 (3-11) 01/31/23 22:11 BUN 17 mg/dl (6-23) 01/31/23 22:11 Creatinine 0.82 mg/dl (0.6-1.2) 01/31/23 22:11 Est Cr Clr Drug Dosing 136.5 ml/min 01/31/23 22:11 Est GFR ( Amer) 100.2 ml/min 01/31/23 22:11 Est GFR (Non-Af Amer) 86.4 ml/min 01/31/23 22:11 BUN/Creatinine Ratio 20.7 (10-20) H 01/31/23 22:11 Glucose 97 mg/dl (70-99(Fasting)) 01/31/23 22:11 Calcium 9.4 mg/dl (8.6-10.3) 01/31/23 22:11 SARS-CoV-2, RNA, NAAT NEGATIVE (NEGATIVE) 02/01/23 Unknown PG Care Time/CCT Total # of Minutes Spent Total Time Spent with Patient: Total time spent is greater than 50% in coordination of care (as documented) at patient's floor/unit and/or counseling patient: Coding Level of Care Code 94829 INT INP/OBS CARE 2/55MIN Diagnoses Infected cat bite of finger S61.259A; L08.9; W55.01XA Encounter type: initial encounter (1) Infected cat bite of finger Encounter type: initial encounter Qualified Code(s): S61.259A - Open bite of unspecified finger without damage to nail, initial encounter; L08.9 - Local infection of the skin and subcutaneous tissue, unspecified; W55.01XA - Bitten by cat, initial encounter
[2023-02-01] MEDS: PIPERACILLIN/TAZOBACTAM 4.5 GM/120 ML BAG IV ONE (00:29)
[2023-02-01] MEDS ORDERED: ACETAMINOPHEN 325 MG TAB PO PRN (02:34)
[2023-02-01] MEDS: IBUPROFEN 600 MG TAB PO PRN ×3 (03:40→17:41)
[2023-02-01] MEDS ORDERED: DIPHTHERIA/TETANUS/PERTUSSIS 0.5mL SYR/VIAL (Age 7+yrs) IM ONE (04:12)
[2023-02-01] MEDS: PIPERACILLIN/TAZOBACTAM 4.5 GM in DEXTROSE 5% 100 ML IV SCH ×2 (07:28→14:19)
--- NOTE | 2023-02-01 09:04 | XRay Report ---
XR hand RT min 3V routine, XR hand LT min 3V routine HISTORY: 47 years-old Female finger cat bites acute bilateral hand pain status post trauma COMPARISON: None TECHNIQUE: 3 views of the bilateral hands FINDINGS: RIGHT: Soft tissue swelling is most pronounced in the second finger and dorsal hand. No acute fracture, disl ocation, osseous erosion or opaque foreign body. LEFT: Mild diffuse soft tissue swelling. No acute fracture, dislocation, osseous erosion or opaque foreign body. 3 mm negative ulnar variance. IMPRESSION: Soft tissue swelling without acute osseous abnormality or opaque foreign body. ACT 112: Negative or not required by law. The above report was generated using voice recognition software. It may contain grammatical, syntax o r spelling errors. Electronically signed by: Syed Alves M.D. 02/01/2023 9:00 AM
--- NOTE | 2023-02-01 09:24 | Orthopedic Consultation ---
Date of Consultation February 01, 2023 Assessment & Plan (1) Cat bite: 47-year-old female presenting with cat bites with worsening edema, redness and pain currently on Zosyn, will cont to monitor. have ordered MRI of left ring finger and right index finger to r/o tenosynovitis vs abscess. discussed patient care with Dr Vega, will review imaging and assess her response to the Abx, will make NPO after MN tonight in the even that she would require I&D. tetanus vaccine given History of Present Illness Reason for Consultation: cat bites left and right hands Attending Physician: Kali Austin MD History of Present Illness Aliyah is a pleasant 47 year old female who presented yesterday evening to the ER after sustaining multiple cat bites to both of her hands, which occurred Tuesday evening. she states that they are remodeling and the cat got its paw caught, when she attempted to help free the cat, the cat then bit her multiple times. This is her indoor cat, cat is in otherwise good health but does not have any vaccinations. she received tetanus shot while in the ER. she denies fever/chills, no pain at rest, she states only having pain if she bumps her digits. she presented to the ER after her fingers became more swollen and painful. Allergies Allergy/AdvReac Type Severity Reaction Status Date / Time No Known Allergies Allergy Unknown Verified 02/01/23 00:50 Home Medications Medication Instructions Recorded Confirmed Type ibuprofen 200 mg tablet (Advil) 1,000 mg PO BID PRN Pain 02/01/23 02/01/23 History Patient History Medical History Depression Hypertension Hypothyroid Surgical History History of appendectomy History of spinal fusion History of tonsillectomy History of tubal ligation Family History Other Diabetes Social History Smoking Status: Former smoker Second Hand Exposure: No; Do You Dip or Chew Tobacco: No; Tobacco Cessation Education Requested by Patient: No Hx Alcohol Use: Yes Alcohol type: beer Hx Substance Use: No Preferred Language: Spanish Communication Ability: Effective Touch Up Carver Required: No Beliefs That Will Affect Care: None Current Living Situation: Spouse Other Information That Helps Us Care for You: No Feels Safe at Home: Yes Safety Concerns: Feels Safe At This Time Assistive Devices: Glasses Review of Systems Review of Systems: All systems reviewed & are unremarkable except as noted in HPI & below Constitutional: no fever, no chills and no sweats Respiratory: no cough and no dyspnea Cardiovascular: no chest pain, no dyspnea and no orthopnea Gastrointestinal: no abdominal pain, no nausea and no vomiting Musculoskeletal: as per Subjective / HPI Physical Exam Physical Exam: Vital Signs Temp 36.4 C L 02/01/23 07:41 Pulse 60 02/01/23 07:41 Resp 18 02/01/23 07:41 BP 121/76 02/01/23 07:41 Pulse Ox 97 02/01/23 07:41 O2 Del Method Room Air 02/01/23 07:41 Intake & Output 01/31/23 02/01/23 02/01/23 18:59 06:59 18:59 Intake Total 220 / 220 Balance 220 / 220 Weight 154.3 kg 154.3 kg Intake: IV 220 / 220 Piperacillin/T azobactam 4.5 gm 120 / 120 In 120 ml @ 24 0 mls/hr IV NOW ONE Rx#:[id number] metroNIDAZOLE 500 mg In 100 ml 100 / 100 @ 100 mls/hr I V NOW STA Rx#: [id number] Other: Weight Measureme nt Method Standing Scale Constitutional: WD/WN, vitals as above no acute distress Respiratory: normal respiratory effort, lungs clear to auscultation no respiratory distress, no labored breathing and does not use accessory muscles Cardiovascular: RRR, no murmur, no edema Gastrointestinal (Abdomen): normal bowel sounds, soft, nontender, no hepatosplenomegaly Musculoskeletal: Right Hand: puncture sites noted right index finger at the PIP joint, swelling noted to the PIP joint, mild erythema. no streaking noted, no pain or tenderness into the hand. mild pain with passive extension of the index finger, she has no pain with active ROM of the right hand in its entirety, particularly the index finger Left Hand: multiple puncture/bite cassidy noted to the index/middle/ring fingers. the ring finger is the most swollen throughout its entirety, swelling also present to the middle and index finger to a lesser extent. she is able to make a fist, with some limitations to ROM due to swelling. no pain with passive extension, there is no swelling or tenderness into the hand, no streaking noted. Results & Data Vital Signs (Past 12 Hours) Vital Signs Temp Pulse Resp BP Pulse Ox O2 Del Method 02/01/23 07:41 36.4 C L 60 18 121/76 97 Room Air 02/01/23 03:03 36.3 C L 78 18 133/86 96 Room Air 02/01/23 02:37 36.3 C L 67 22 133/86 98 Room Air 02/01/23 02:02 71 20 141/89 H 98 Room Air 02/01/23 00:31 67 20 150/86 H 95 Room Air 01/31/23 23:08 69 20 151/89 H 98 Room Air Diagnostic Findings Laboratory Results WBC 9.82 K/ul (4.8-10.8) 01/31/23 22:11 RBC 4.32 M/uL (4.20-5.40) 01/31/23 22:11 Hgb 12.7 g/dl (12.0-16.0) 01/31/23 22:11 Hct 38.4 % (37.0-47.0) 01/31/23 22:11 MCV 88.9 fL (80.0-100.0) 01/31/23 22:11 MCH 29.4 pg (25.0-34.0) 01/31/23 22:11 MCHC 33.1 g/dL (32.0-36.0) 01/31/23 22:11 RDW Std Deviation 40.0 fL (36.4-46.3) 01/31/23 22:11 RDW Coeff of [place] 12.3 % (11.5-14.5) 01/31/23 22:11 Plt Count 295 K/uL (130-400) 01/31/23 22:11 MPV 9.2 fL (9.4-12.4) L 01/31/23 22:11 Immature Gran % (Auto) 0.2 % 01/31/23 22:11 Neut % (Auto) 54.4 % 01/31/23 22:11 Lymph % (Auto) 34.0 % 01/31/23 22:11 [place] % (Auto) 9.9 % 01/31/23 22:11 Eos % (Auto) 1.0 % 01/31/23 22:11 Baso % (Auto) 0.5 % 01/31/23 22:11 Neut # (Auto) 5.34 K/uL (1.40-6.50) 01/31/23 22:11 Lymph # (Auto) 3.34 K/uL (1.2-3.4) 01/31/23 22:11 [place] # (Auto) 0.97 K/uL (0.11-0.59) H 01/31/23 22:11 Eos # (Auto) 0.10 K/uL (0-0.50) 01/31/23 22:11 Baso # (Auto) 0.05 K/uL (0-0.2) 01/31/23 22:11 Immature Gran # (Auto) 0.02 K/uL (0.01-0.20) 01/31/23 22:11 Sodium 138 mmol/L (136-145) 01/31/23 22:11 Potassium 4.0 mmol/L (3.5-5.1) 01/31/23 22:11 Chloride 106 mmol/L (98-107) 01/31/23 22:11 Carbon Dioxide 24 mmol/L (21-32) 01/31/23 22:11 Anion Gap 8 (3-11) 01/31/23 22:11 BUN 17 mg/dl (6-23) 01/31/23 22:11 Creatinine 0.82 mg/dl (0.6-1.2) 01/31/23 22:11 Est Cr Clr Drug Dosing 136.5 ml/min 01/31/23 22:11 Est GFR ( Amer) 100.2 ml/min 01/31/23 22:11 Est GFR (Non-Af Amer) 86.4 ml/min 01/31/23 22:11 BUN/Creatinine Ratio 20.7 (10-20) H 01/31/23 22:11 Glucose 97 mg/dl (70-99(Fasting)) 01/31/23 22:11 Calcium 9.4 mg/dl (8.6-10.3) 01/31/23 22:11 SARS-CoV-2, RNA, NAAT NEGATIVE (NEGATIVE) 02/01/23 Unknown Impressions Hand X-Ray 01/31/23 23:14 XR hand RT min 3V routine, XR hand LT min 3V routine HISTORY: 47 years-old Female finger cat bites acute bilateral hand pain status post trauma COMPARISON: None TECHNIQUE: 3 views of the bilateral hands FINDINGS: RIGHT: Soft tissue swelling is most pronounced in the second finger and dorsal hand. No acute fracture, dislocation, osseous erosion or opaque foreign body. LEFT: Mild diffuse soft tissue swelling. No acute fracture, dislocation, osseous erosion or opaque foreign body. 3 mm negative ulnar variance. IMPRESSION: Soft tissue swelling without acute osseous abnormality or opaque foreign body. ACT 112: Negative or not required by law. The above report was generated using voice recognition software. It may contain grammatical, syntax or spelling errors. Electronically signed by: Syed Alves M.D. 02/01/2023 9:00 AM
--- NOTE | 2023-02-01 13:26 | History & Physical Bridge Note ---
Date of Service February 01, 2023 History & Physical Bridge Note I have examined the patient, reviewed the History & Physical and in the interval since the performance of the History & Physical I have noted the following changes of clinical significance: no changes noted Patient hospitalized after being bit by her cat on Tuesday while trying to get the cat's claw unstuck and now with worsening swelling, redness, and pain in her fingers that were affected. She denies fever, chills. Denies loss of sensation. Still able to move fingers but they are painful to movement and to palpation. Puncture wounds noted on L index and ring finger and R index finger with associated erythema/edema. She has been started on Zosyn, which is appropriate coverage for pasteurella. Tdap booster given. She was seen this AM by ortho, MRI of R/L hand ordered, no evidence of abscess or tenosynovitis. Appreciate ortho input. APAP/Ibuprofen ordered prn pain/fever. Repeat labs ordered for tomorrow AM. Maintain on Zosyn today and likely home tomorrow on course of Augmentin. Plan d/w Dr. Austin.
--- NOTE | 2023-02-01 13:28 | Magnetic Resonance Report ---
MRI OF THE RIGHT HAND WITHOUT CONTRAST CLINICAL HISTORY: Right second digit pain and swelling following cat bite. Evaluate abscess, r/o teno synovitis index finger. COMPARISON STUDY: Right hand radiographs January 31, 2023. TECHNIQUE: Utilizing a 1.5 Jess magnet and dedicated coil, multiplanar, multiecho imaging of the rig ht hand was performed without intra-articular contrast. FINDINGS: A marker was placed in the skin at site of cat bite with swelling and erythema. Note is mad e of moderate associated subcutaneous edema consistent with cellulitis. No loculated fluid collection is identified on this unenhanced exam to suggest an abscess. This dorsal edema extends from the leve l of the midshaft of the second metacarpal to the mid to distal aspect of the right second finger. Th ere is fluid adjacent to the extensor tendon however there is no increased fluid within the tendon sh eath to indicate tenosynovitis by MRI. No marrow edema is present. There is no fracture. Carpal bones are intact. IMPRESSION: 1. Moderate subcutaneous fluid of the right second finger extending to the level of the mid shaft of the second metacarpal consistent with cellulitis. No fluid collection on this unenhanced exam to sugg est abscess. 2. Fluid surrounding the right second digit extensor tendon without increased fluid within the tendon sheath to suggest tenosynovitis. 3. No evidence for acute osteomyelitis. ACT 112: Negative or not required by law. Electronically signed by: Grant Shelton M.D. 02/01/2023 1:27 PM
--- NOTE | 2023-02-01 13:58 | Magnetic Resonance Report ---
MRI OF THE LEFT HAND WITHOUT CONTRAST CLINICAL HISTORY: Left fourth finger pain and swelling following cat bite. Evaluate for tenosynovitis , abscess left ring finger. COMPARISON STUDY: Left hand radiographs January 31, 2023. TECHNIQUE: Utilizing a 1.5 Jess magnet and dedicated coil, multiplanar, multiecho imaging of the lef t hand was performed without intravenous contrast. FINDINGS: Alignment of the left hand is anatomic. There is no marrow edema to suggest acute osteomyel itis. No fractures are identified. A marker was placed on the skin at site of maximal pain and swelli ng. This overlies the left second, third and fourth fingers. Note is made of moderate edema within th e second and fourth fingers with mild edema within the third finger. Edema tracks more proximally el ng the extensor tendons of the third, fourth and fifth fingers. However, there is no increased fluid within the tendon sheaths. The fluid extends to the level the proximal shafts of the metacarpal. No l oculated fluid is present. IMPRESSION: 1. Moderate multifocal edema within the left second, third and fourth fingers as well as fluid tracki ng proximally along the extensor tendons of the left third, fourth and fifth fingers. This is suggest olvin of cellulitis extending proximally. No fluid collection to suggest abscess. No MR evidence for te nosynovitis. 2. No marrow edema to suggest acute osteomyelitis within the left hand. ACT 112: Negative or not required by law. Electronically signed by: Grant Shelton M.D. 02/01/2023 1:57 PM
[2023-02-01] MEDS ORDERED: AMOXICILLIN/CLAVULANATE 875MG HOME PACK PO ONE (16:45)
--- NOTE | 2023-02-01 16:56 | Discharge Summary ---
Date of Service February 01, 2023 Admission HPI Per Admitting Provider Aliyah Jerome Is a 47-year-old female with history of hypothyroidism and hypertension presenting with multiple cat bites on her hands. Patient's cat got its paw caught. When patient tried to help free the cat's paw, the cat bit her multiple times on both of her hands. The event occurred yesterday 01/30/2023 around 20:30. She sustained multiple puncture wounds to her left and right hands. Since the event, she has noted increased swelling and pain in her bilateral hands specifically her second and fourth digit on her left and her second digit on her right hand. She has also noted worsening redness on the dorsum of the right second digit.[facility] rings [facility] off of her left finger secondary to swelling. Patient denies fevers, chills, nausea, vomiting. Denies chest pain, cough, shortness of breath. No additional complaints at this time. She has been taking Advil and Tylenol to help manage her pain. Cat is an indoor cat, 4 years old and has never been outside. The animal has not received any vaccinations. She reports that the animal is in good health. Patient last had a tetanus shot in 2010 after being bitten by a dog. In the ER she is afebrile, mildly hypertensive otherwise hemodynamically stable. No acute distress ER course: Jareth Loja Principal Diagnosis Cellulitis secondary to cat bite Discharge Exam GENERAL: 47 yo obese WF. AA&Ox3. NAD. LUNGS: Clear to auscultation bilaterally w/o w/r/r CARDIOVASCULAR: Regular rate and rhythm. SKIN: L hand index finger and ring finger and R index finger with erythema/edema and puncture wounds, one of which has a superficial likely little bit of pus present. but none of which are actively draining. Cap refill <2 sec. Sensation intact. Discharge Data Allergies Allergy/AdvReac Type Severity Reaction Status Date / Time No Known Allergies Allergy Unknown Verified 02/01/23 00:50 Consultations 01/31/23 23:27 ED Decision to Admit Stat 02/01/23 02:34 Consult Orthopedic Surgery Routine Ordered Studies Hand X-Ray 01/31/23 23:14 XR hand RT min 3V routine, XR hand LT min 3V routine HISTORY: 47 years-old Female finger cat bites acute bilateral hand pain status post trauma COMPARISON: None TECHNIQUE: 3 views of the bilateral hands FINDINGS: RIGHT: Soft tissue swelling is most pronounced in the second finger and dorsal hand. No acute fracture, dislocation, osseous erosion or opaque foreign body. LEFT: Mild diffuse soft tissue swelling. No acute fracture, dislocation, osseous erosion or opaque foreign body. 3 mm negative ulnar variance. IMPRESSION: Soft tissue swelling without acute osseous abnormality or opaque foreign body. ACT 112: Negative or not required by law. The above report was generated using voice recognition software. It may contain grammatical, syntax or spelling errors. Electronically signed by: Syed Alves M.D. 02/01/2023 9:00 AM Hand X-Ray 01/31/23 23:14 XR hand RT min 3V routine, XR hand LT min 3V routine HISTORY: 47 years-old Female finger cat bites acute bilateral hand pain status post trauma COMPARISON: None TECHNIQUE: 3 views of the bilateral hands FINDINGS: RIGHT: Soft tissue swelling is most pronounced in the second finger and dorsal hand. No acute fracture, dislocation, osseous erosion or opaque foreign body. LEFT: Mild diffuse soft tissue swelling. No acute fracture, dislocation, osseous erosion or opaque foreign body. 3 mm negative ulnar variance. IMPRESSION: Soft tissue swelling without acute osseous abnormality or opaque foreign body. ACT 112: Negative or not required by law. The above report was generated using voice recognition software. It may contain grammatical, syntax or spelling errors. Electronically signed by: Syed Alves M.D. 02/01/2023 9:00 AM Hand MRI 02/01/23 09:19 MRI OF THE RIGHT HAND WITHOUT CONTRAST CLINICAL HISTORY: Right second digit pain and swelling following cat bite. Evaluate abscess, r/o tenosynovitis index finger. COMPARISON STUDY: Right hand radiographs January 31, 2023. TECHNIQUE: Utilizing a 1.5 Jess magnet and dedicated coil, multiplanar, multiecho imaging of the right hand was performed without intra-articular contrast. FINDINGS: A marker was placed in the skin at site of cat bite with swelling and erythema. Note is made of moderate associated subcutaneous edema consistent with cellulitis. No loculated fluid collection is identified on this unenhanced exam to suggest an abscess. This dorsal edema extends from the level of the midshaft of the second metacarpal to the mid to distal aspect of the right second finger. There is fluid adjacent to the extensor tendon however there is no increased fluid within the tendon sheath to indicate tenosynovitis by MRI. No marrow edema is present. There is no fracture. Carpal bones are intact. IMPRESSION: 1. Moderate subcutaneous fluid of the right second finger extending to the level of the mid shaft of the second metacarpal consistent with cellulitis. No fluid collection on this unenhanced exam to suggest abscess. 2. Fluid surrounding the right second digit extensor tendon without increased fluid within the tendon sheath to suggest tenosynovitis. 3. No evidence for acute osteomyelitis. ACT 112: Negative or not required by law. Electronically signed by: Grant Shelton M.D. 02/01/2023 1:27 PM Hand MRI 02/01/23 09:19 MRI OF THE LEFT HAND WITHOUT CONTRAST CLINICAL HISTORY: Left fourth finger pain and swelling following cat bite. Evaluate for tenosynovitis, abscess left ring finger. COMPARISON STUDY: Left hand radiographs January 31, 2023. TECHNIQUE: Utilizing a 1.5 Jess magnet and dedicated coil, multiplanar, multiecho imaging of the left hand was performed without intravenous contrast. FINDINGS: Alignment of the left hand is anatomic. There is no marrow edema to suggest acute osteomyelitis. No fractures are identified. A marker was placed on the skin at site of maximal pain and swelling. This overlies the left second, third and fourth fingers. Note is made of moderate edema within the second and fourth fingers with mild edema within the third finger. Edema tracks more proximally along the extensor tendons of the third, fourth and fifth fingers. However, there is no increased fluid within the tendon sheaths. The fluid extends to the level the proximal shafts of the metacarpal. No loculated fluid is present. IMPRESSION: 1. Moderate multifocal edema within the left second, third and fourth fingers as well as fluid tracking proximally along the extensor tendons of the left third, fourth and fifth fingers. This is suggestive of cellulitis extending proximally. No fluid collection to suggest abscess. No MR evidence for tenosynovitis. 2. No marrow edema to suggest acute osteomyelitis within the left hand. ACT 112: Negative or not required by law. Electronically signed by: Grant Shelton M.D. 02/01/2023 1:57 PM Hospital Course (1) Infected cat bite of finger: 47-year-old female presenting with worsening edema, redness and pain at the site of multiple cat bites. Patient is afebrile, hemodynamically stable and nontoxic in appearance. Observation to medical Started on Zosyn in ED and continued by admitting physician Orthopedic surgery consultation appreciated Tylenol and ibuprofen as needed for pain - MRI of both R/L hand completed, no evidence of tenosynovitis or abscess. No need for surgical debridement. - At this time, will plan for dc home on course of Augmentin which she can start tomorrow AM. Pt has been instructed to return for ER evaluation if any numbness/tingling, worsening pain, swelling, fever/chills. - Tetanus vaccine given Patient with history of hypertension, hypothyroidism and depression. She reports she is not currently taking any medications for these issues. She recently got her medical insurance reinstated and is in the process of trying to obtain these medications. I asked if she needed assistance at this time and she declined. Plan Patient is medically and hemodynamically stable for discharge home today and would like to be discharged home. She has been instructed on warning signs to look for and to return if any concerns. Script provided for Augmentin and sent to pharmacy. Can continue to use Tylenol/Motrin as needed for pain. Follow up with PCP within 1 week of discharge or sooner if needed. Plan has been d/w Dr. Austin who is in agreement. Total Time Total Time Spent Total Time Spent (In Minutes): <30 minutes Discharge Plan Discharge Items Patient Disposition: Home - Self-Care Reason For Visit: CAT BITE, CELLULITIS Discharge Diagnosis: cat bites, cellulitis (skin infection) Condition on Discharge: Good Activity: Resume your previous activity Non-emergency contact: Primary Care Provider Call non-emergency contact if: you have any medication questions Follow-up/Referrals: Robert Victoria MD [Primary Care Provider] - Diet: Regular Addtl Attending Provider Instructions: You were hospitalized due to cat bites that resulted in a skin infection which is causing your skin to appear red and causing swelling and pain. Due to the significant tenderness you were having, you had an MRI of both hands to ensure that you did not have tendon involvement or an abscess that required surgical drainage which was negative. You will be placed on an antibiotic called augmentin which you will need to take twice a day. Please complete the course as directed. Take with food or milk to minimize upset. You can start your first dose of Augmentin tonight (02/01/23). If you should have any worsening swelling/pain or development of numbness/tingling or discoloration in your fingers, you need to return to the ER for re-evaluation. Follow up with your family doctor within 1 week of discharge or sooner if needed. If you have any questions after you leave the hospital, call the nonemergency number listed on your discharge paperwork. In the event of a medical emergency, call 911. Pending Studies at Discharge: No Stand-Alone Forms: My [facility], Smoking Cessation Medications and DC Order Prescriptions: New amoxicillin-pot clavulanate 875-125 mg tablet 1 tab PO BID Qty: 19 0RF Continued ibuprofen [Advil] 200 mg Tablet 1,000 mg PO BID PRN (Reason: Pain) Discharge Orders: Discharge Order (Routine); Ordered 02/01/23 Ordered By: Li Montoya Admission Data Admit Date/Time: 02/01/23 00:26 Attending Provider: Kali Austin Admit Provider: Jovanna Mayer Primary Care Provider: Robert Victoria Other Providers: Jovanna Mayer ; Sp [place] Other Interventions: Discharge Summary Assessment (RN) Last Done: 02/01/23 16:33 Coding Level of Care Code INP/OBS EV SAME DAY LV 1,45MIN Diagnoses Infected cat bite of finger S61.259A; L08.9; W55.01XA Encounter type: initial encounter
== END 2023-02-01 18:39 | disposition home or self-care (01) ==
LOC: 3N 20:09 → ED 20:09 → SUATTDRO 02-01 00:26 → 3N 02-01 02:07